=== PATIENT | female | born 1985 | race Caucasian/White ===

== ENCOUNTER 2022-04-22 10:09 | Emergency (ER) | payer BC, SELFPAY ==
[2022-04-22 10:50] VITALS: BP 182/105; PULSE 78; RESP 20; TEMP 36.8; O2SAT 98; BMI 35.5
[2022-04-22 11:14] LABS: UTC Strep Screen (Rapid) Negative (Negative)
--- NOTE | 2022-04-22 11:26 | EXP.UTC ---
Discharge Plan Disposition Patient Disposition: Home, Self-Care Condition: Good Prescriptions Prescriptions: New azithromycin [azithromycin] 250 mg tablet 250 mg PO DIRECTED Qty: 6 0RF Rx Instructions: Take two (2) tablets on day #1, then one (1) tablet day #2 thru #5 No Action sertraline 50 mg tablet 150 mg PO DAILY Label Comments: TAKE 3 TABLETS BY MOUTH DAILY aripiprazole 5 mg tablet 5 mg PO DAILY Label Comments: TAKE 1 TABLET BY MOUTH ONCE DAILY Referrals Follow up/Referrals: Jose Pastrana MD [Primary Care Provider] - See instructions Activity Restrictions/Add. Instructions Additional Instructions/Restrictions: Start antibiotics today be sure to take it as ordered with the full length of time although you should start feeling better in 24-48 hours. Change toothbrush and toothpaste 24-48 hours after starting antibiotics Tylenol or Motrin as needed for fever or pain Encourage fluids, water, Gatorade, Powerade, try cold fluids, popsicles, ice cream will make it feel better You are contagious for 24 hours. Avoid kissing anyone, no eating or drinking after anyone. You are contagious. Follow-up the ER for new or worsening symptoms or no noticeable improvement over the next 24-48 hours. Follow-up with PCP this week. Clinical Impressions Clinical Impression: Strep sore throat Instructions Patient Instructions: DI for Strep Throat Discharge ED Provider: Jhonny ([facility])Shanell [facility] [place] HPI General Stated complaint: Sore throat, BA, Fever, ear pain Mode of Arrival: Ambulatory Source of Information: Patient Limitations: No Limitations Time Seen by Provider: 04/22/22 11:26 Description of Symptoms (Recalled from Triage Doc. by RN): PATIENT C/O SORE THROAT, EARS BURNING, FEVER AND CHILLS SINCE SATURDAY NIGHT HEENT Symptoms (Recalled from RN notes): Yes Resp Symptoms (Recalled from RN notes): No Skin Symptoms (Recalled from RN notes): No MS Symptoms (Recalled from RN notes): No Functional Status (Recalled from RN notes): WNL History of Present Illness Provider Complaint: 36 yr old female presents for sore throat, fever, body aches and painful swallowing. pt states it feels like it does when she has strep Related Data Home Medications Medication Instructions Recorded Confirmed aripiprazole 5 mg tablet 5 mg PO DAILY Anxiety 04/22/22 04/22/22 sertraline 50 mg tablet 150 mg PO DAILY Depression 04/22/22 04/22/22 Previous Rx's Medication Instructions Recorded azithromycin 250 mg tablet 250 mg PO DIRECTED #6 tabs 04/22/22 Allergies Allergy/AdvReac Type Severity Reaction Status Date / Time No Known Allergies Allergy Verified 04/22/22 11:01 Worker's Comp Is this a Worker's Comp case?: No PFSH PFSH Medical History , 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) Anxiety Depression Migraine Surgical History , 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) History of section History of hysterectomy Social History , 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) Smoking Status: Unknown if ever smoked alcohol intake: never current occupational status: employed Travel in the last 8 weeks: None ROS Obtained: Yes All systems reviewed & no additional complaints except as documented Constitutional Constitutional: Reports system reviewed and no additional complaints, except as documented, Reports as per HPI, Reports body ache, Reports chills and Reports fever(s) Eyes Eyes: Reports system reviewed and no additional complaints, except as documented and Reports as per HPI ENT Ears, Nose, Mouth, and Throat: Reports system reviewed and no additional complaints, except as documented and Reports sore throat Cardiovascular Cardiovascular: Reports system reviewed and no additional complaints, except as documented Respiratory Respiratory: Reports system reviewed and no additional complaints, except as documented Gastroint
[2022-04-22 11:35] VITALS: BP 182/105; PULSE 78; RESP 20; TEMP 36.8; O2SAT 98
== END 2022-04-22 11:39 | disposition home or self-care (01) ==
PROVIDERS: Emergency Provider Nurse Practitioner Family; PCP Family Medicine
DX: J02.9 Acute pharyngitis, unspecified (principal); R50.9 Fever, unspecified; H92.09 Otalgia, unspecified ear
CPT/HCPCS: 87880; 99212; G0463